=== PATIENT | female | born 1995 | race Caucasian/White ===

== ENCOUNTER 2017-08-30 13:36 | Emergency (ER) | payer OTHER ==
[~2017-08-30] VITALS: Ht 160 cm; Wt 48.6 kg
[2017-08-30] MEDS ORDERED: ZOLM2.5S NAS (14:05)
[2017-08-30] MEDS ORDERED: AMIT10TA PO (14:05)
[2017-08-30] MEDS ORDERED: DIPHENHYDRAMINE 50 MG/ML, 1ML ONE (14:22)
[2017-08-30] MEDS ORDERED: PROCHLORPERAZINE 5 MG/ML, 2ML IVPush ONE (14:30)
[2017-08-30] MEDS ORDERED: DIPHENHYDRAMINE 50 MG/ML, 1ML IVPush ONE (14:30)
[2017-08-30] MEDS ORDERED: BUTORPHANOL 1 MG/ML, 1ML IVPush ONE (15:00)
[2017-08-30] MEDS ORDERED: SODIUM CHLORIDE FLUSH 10ML SYR IVF ONE (15:30)
[2017-08-30 16:37] VITALS: BP 115/76
== END 2017-08-30 16:44 | disposition home or self-care (01) ==
LOC: ED 16:33
DX: G43.909 Migraine, unspecified, not intractable, without status migrainosus (principal)
CPT/HCPCS: 70450; 96374; 96375; 99284; J0595; J0780; J1200